=== PATIENT | female | born 1995 | race Caucasian/White ===

== ENCOUNTER 2019-09-16 13:38 | Emergency (ER) | payer BC ==
[~2019-09-16] VITALS: Ht 160 cm; Wt 86.2 kg
[2019-09-16 15:48] VITALS: BP 117/62
== END 2019-09-16 15:48 | disposition home or self-care (01) ==
LOC: ED 13:38
DX: R07.89 Other chest pain (principal); F41.9 Anxiety disorder, unspecified
CPT/HCPCS: J1885; Q0092